=== PATIENT | male | born 1995 | race Caucasian/White ===

== ENCOUNTER 2023-09-21 16:30 | Emergency (ER) | payer OTHER ==
[~2023-09-21] VITALS: Ht 182.9 cm; Wt 86.2 kg
[2023-09-21 16:57] LABS: BASOPHILS % 0.4 % (0.0-1.0); EOSINOPHILS # (AUTO) 0.1 (0.0-0.4); EOSINOPHILS % 0.9 % (0.0-6.0); HEMATOCRIT 47.1 % (38.2-49.6); HEMOGLOBIN 15.9 g/dL (14.0-18.0); LYMPHOCYTES # (AUTO) 2.7 (1.0-3.2); MEAN CORPUSCULAR HEMOGLOBIN 30.6 pg (28-32); MEAN CORPUSCULAR HGB CONC 33.8 g/dL (31-35); MEAN CORPUSCULAR VOLUME 90.6 fL (81-99); MONOCYTES # (AUTO) 0.5 (0.2-0.8); NEUTROPHILS # (AUTO) 4.3 (2.1-6.9); NEUTROPHILS % 56.6 % (38.7-80.0); PLATELET COUNT 216 x10e3/uL (140-360); RED CELL DISTRIBUTION WIDTH 12.5 % (11.7-14.4); WHITE BLOOD COUNT 7.62 x10e3/uL (4.8-10.8)
[2023-09-21] MEDS ORDERED: SODIUM CHLORIDE FLUSH 10 ML SYR IV PRN (17:00)
[2023-09-21 17:01] LABS: INR 0.98; PROTHROMBIN TIME 13.2 seconds (11.9-14.5)
[2023-09-21 17:02] LABS: PARTIAL THROMBOPLASTIN TIME 25.8 seconds (23.8-35.5)
[2023-09-21 17:11] LABS: ALANINE AMINOTRANSFERASE 18 IU/L (0-55); ALBUMIN/GLOBULIN RATIO 1.6 (0.8-2.0); ALKALINE PHOSPHATASE 45 IU/L (40-150); ANION GAP 17.9 mmol/L (8-16); BILIRUBIN,TOTAL 0.5 mg/dL (0.2-1.2); BLOOD UREA NITROGEN 15 mg/dL (7-26); BUN/CREATININE RATIO 13 (6-25); CALCIUM 9.9 mg/dL (8.4-10.2); CARBON DIOXIDE 23 mmol/L (22-29); CHLORIDE 100 mmol/L (98-107); CREATININE, SERUM 1.13 mg/dL (0.72-1.25); EST GLOMERULAR FILTRATION RATE 90 ML/MIN (>=60); GLUCOSE 116 mg/dL (74-118); POTASSIUM 3.9 mmol/L (3.5-5.1); SODIUM 137 mmol/L (136-145); TOTAL PROTEIN 8.2 g/dL (6.5-8.1)
[2023-09-21 17:18] LABS: TROPONIN I < 0.001 ng/mL (0-0.300)
[2023-09-21] MEDS ORDERED: CLONIDINE HCL0.1 MG PO (18:09)
[2023-09-21 18:18] VITALS: BP 124/68; PULSE 75; RESP 19; O2SAT 99
[2023-09-21 18:20] LABS: BILIRUBIN,URINE NEGATIVE (NEGATIVE); CLARITY,URINE SL CLOUDY (CLEAR); COLOR,URINE YELLOW (YELLOW); GLUCOSE, URINE NEGATIVE (NEGATIVE); KETONES,URINE TRACE (NEGATIVE); LEUKOCYTE ESTERASE ,URINE NEGATIVE (NEGATIVE); NITRITE,URINE NEGATIVE (NEGATIVE); PH,URINE 6 (5 - 7); PROTEIN,URINE DIPSTICK NEGATIVE (NEGATIVE); URINE UROBILINOGEN 0.2 mg/dL (0.2 - 1)
[2023-09-21 18:30] LABS: RBC,URINE 0-5 /HPF (0-5)
== END 2023-09-21 18:23 | disposition home or self-care (01) ==
LOC: ER 16:54
DX: R20.0 Anesthesia of skin (principal); I16.0 Hypertensive urgency
CPT/HCPCS: 36415; 70450; 71045; 80053; 81001; 83880; 84484; 85025; 85610; 85730; 93005; 94760; 99284